=== PATIENT | female | born 1995 | race African-American/Black ===

== ENCOUNTER 2023-01-25 02:44 | Emergency (ER) | payer MEDICAID ==
[~2023-01-25] VITALS: Ht 165.1 cm; Wt 69.0 kg
[2023-01-25] MEDS ORDERED: HYDROCODONE/ACETAMINOPHEN 5/325MG TABLET PO ONE (04:30)
[2023-01-25 04:39] VITALS: BP 130/112
[2023-01-25] MEDS ORDERED: IBUP-2028 MT (05:49)
[2023-01-25] MEDS ORDERED: BACL-141 MT (05:49)
== END 2023-01-25 06:12 | disposition home or self-care (01) ==
LOC: ER 02:44
DX: S16.1XXA Strain of muscle, fascia and tendon at neck level, initial encounter (principal); S39.012A Strain of muscle, fascia and tendon of lower back, initial encounter; S20.219A Contusion of unspecified front wall of thorax, initial encounter; V49.9XXA Car occupant (driver) (passenger) injured in unspecified traffic accident, initial encounter; Y93.89 Activity, other specified; Y92.89 Other specified places as the place of occurrence of the external cause; Y99.8 Other external cause status
CPT/HCPCS: 71045; 72040; 72100; 81025; 99284